=== PATIENT | female | born 1980 | race American Indian/Alaskan Native ===

== ENCOUNTER 2019-01-30 17:48 | Emergency (ER) | payer MEDICAID ==
[2019-01-30 18:23] VITALS: BP 156/91
--- NOTE | 2019-01-30 18:55 | EDM.PDOC ---
ED HPI GENERAL MEDICAL PROBLEM - General Chief Complaint: Abdominal Pain Stated Complaint: ABD PAIN Time Seen by Provider: 01/30/19 18:30 Source of Information: Reports: Patient History Limitations: Reports: No Limitations - History of Present Illness INITIAL COMMENTS - FREE TEXT/NARRATIVE: 38-year-old female with upper abdominal pain and spasms intermittently all day, one episode of emesis. Currently she has no discomfort. No diarrhea, no fevers or chills. She has a history of a cholecystectomy. Onset: Today Duration: Hour(s): (Started at 11 this morning, 8 hours ago) Location: Reports: Abdomen (Upper abdomen) Improves with: Reports: None Worsens with: Reports: None Upper Abdominal Pain Score (Numeric/FACES): 8 - Related Data Allergies Allergy/AdvReac Type Severity Reaction Status Date / Time No Known Allergies Allergy Verified 01/30/19 18:25 Home Meds: Home Meds Buprenorphine HCl/Naloxone HCl [Suboxone 12 mg-3 mg Sl Film] 2 each SL DAILY 12/19 [History] medroxyPROGESTERone Acetate [Depo-Subq Provera 104] 1 dose SQ ASDIRECTED [History] Past Medical History HEENT History: Reports: Impaired Vision Gastrointestinal History: Reports: Cholelithiasis 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: Musculoskeletal History: Reports: Back Pain, Chronic Neurological History: Reports: Migraines - Infectious Disease History Infectious Disease History: Reports: Chicken Pox - Past Surgical History GI Surgical History: Reports: Cholecystectomy Social & Family History - Tobacco Use Smoking Status *Q: Current Every Day Smoker Years of Tobacco use: 20 Packs/Tins Daily: 0.5 Used Tobacco, but Quit: No Second Hand Smoke Exposure: Yes - Caffeine Use Caffeine Use: Reports: Coffee, Soda, Tea - Recreational Drug Use Recreational Drug Use: No ED ROS GENERAL - Review of Systems Review Of Systems: See Below Constitutional: Denies: Fever, Chills HEENT: Reports: No Symptoms Respiratory: Denies: Shortness of Breath Cardiovascular: Denies: Chest Pain GI/Abdominal: Reports: Abdominal Pain, Constipation, Nausea, Vomiting. Denies: Diarrhea : Reports: No Symptoms Musculoskeletal: Reports: Other (Chronic back pain) Neurological: Reports: No Symptoms ED EXAM, GI/ABD - Physical Exam Exam: See Below Exam Limited By: No Limitations General Appearance: Alert, No Apparent Distress Eyes: Bilateral: Normal Appearance (No jaundice) Head: Atraumatic Neck: Normal Inspection Respiratory/Chest: No Respiratory Distress, Lungs Clear Cardiovascular: Regular Rate, Rhythm GI/Abdominal Exam: Normal Bowel Sounds, Soft, Tender (She does react with tenderness to palpation across the upper abdomen and periumbilical area, no rebound tenderness but mild guarding is present) Neurological: Alert, Oriented Psychiatric: Normal Affect, Normal Mood Skin Exam: Warm, Dry Course - Vital Signs Last Recorded V/S: Last Vital Signs Temp 96.6 F 01/30/19 18:36 Pulse 67 01/30/19 18:36 Resp 16 01/30/19 18:36 BP 156/91 H 01/30/19 18:36 Pulse Ox 94 L 01/30/19 18:36 - Orders/Labs/Meds Labs: Laboratory Tests 01/30/19 01/30/19 01/30/19 Range/Units 18:57 19:00 19:00 WBC 12.1 H (4.5-11.0) K/uL RBC 5.23 (3.30-5.50) M/uL Hgb 14.4 (12.0-15.0) g/dL Hct 44.9 (36.0-48.0) % MCV 86 (80-98) fL MCH 28 (27-31) pg MCHC 32 (32-36) % Plt Count 407 H (150-400) K/uL Neut % (Auto) 82 H (36-66) % Lymph % (Auto) 13 L (24-44) % [place] % (Auto) 5 (2-6) % Eos % (Auto) 1 L (2-4) % Baso % (Auto) 0 (0-1) % Sodium 138 L (140-148) mmol/L Potassium 3.5 L (3.6-5.2) mmol/L Chloride 104 (100-108) mmol/L Carbon Dioxide 25 (21-32) mmol/L Anion Gap 12.5 (5.0-14.0) mmol/L BUN 8 (7-18) mg/dL Creatinine 0.7 (0.6-1.0) mg/dL Est Cr Clr Drug Dosing 91.91 mL/min Estimated GFR (MDRD) > 60 (>60) Glucose 115 H (74-106) mg/dL Calcium 9.1 (8.5-10.1) mg/dL Total Bilirubin 0.7 (0.2-1.0) mg/dL AST 22 (15-37) U/L ALT 28 (12-78) U/L Alkaline Phosphatase 164 H (46-116) U/L Total Protein 8.4 H (6.4-8.2) g/dL Albumin 3.6 (3.4-5.0) g/dL Globulin 4.8 H (2.3-3.5) g/dL Albumin/Globulin Ratio 0.8 L (1.2-2.2) Lipase 63 L (73-393) U/L Urine Opiates Screen Negative (NEGATIVE) Ur Oxycodone Screen Presumptive positive H (NEGATIVE) Urine Methadone Screen Negative (NEGATIVE) Ur Propoxyphene Screen Negative (NEGATIVE) Ur Barbiturates Screen Negative (NEGATIVE) Ur Tricyclics Screen Negative (NEGATIVE) Ur Phencyclidine Scrn Negative (NEGATIVE) Ur Amphetamine Screen Negative (NEGATIVE) U Methamphetamines Scrn Negative (NEGATIVE) Urine MDMA Screen Negative (NEGATIVE) U Benzodiazepines Scrn Negative (NEGATIVE) U Cocaine Metab Screen Negative (NEGATIVE) U Marijuana (THC) Screen Negative (NEGATIVE) - Re-Assessments/Exams Free Text/Narrative Re-Assessment/Exam: 01/30/19 18:53 A two-view x-ray of the abdomen will be obtained, flat and upright. CBC CMP and lipase also drawn. 01/30/19 19:25 Labs were reassuring as well with the white count is mildly elevated, and an alk phosphatase mildly elevated. UA was negative, urine drug screen positive for oxicodone. She'll be sent home with 5 doses of Zofran to use over the next 24-48 hours. Departure - Departure Time of Disposition: 19:35 Disposition: Home, Self-Care 01 Condition: Good Clinical Impression: Abdominal pain Qualifiers: Abdominal location: upper abdomen, unspecified Qualified Code(s): R10.10 - Upper abdominal pain, unspecified - Discharge Information Instructions: Abdominal Pain, Adult, [id number] Referrals: PCP,None [Primary Care Provider] - Forms: ED Department Discharge Care Plan Goals: Use Zofran and your tongue every 6-8 hours for nausea and vomiting, return if worsening such as fever, increased pain or worsening vomiting despite treatment with medicine.
--- NOTE | 2019-01-30 19:22 | CRLCR ---
INDICATION: Abdominal pain. COMPARISON: None. FINDINGS/IMPRESSION: Bowel gas pattern is within normal limits. No free air identified. Right upper quadrant cholecystectomy clips. A 5 millimeter calcification in the right pelvis projected just inferior to the inferior margin of the right sacroiliac joint, could possibly represent a stone in the distal right ureter; clinical correlation is suggested, and this could be further evaluated with CT if clinically indicated. Tiny calcifications in the low left pelvis likely represent phleboliths. Included bones are unremarkable. Dictated by Matthias Franklin MD @ 01/30/2019 7:18:47 PM Dictated by: Matthias Franklin MD @ 01/30/2019 19:20:46 (Electronically Signed)
== END 2019-01-30 19:38 | disposition home or self-care (01) ==
LOC: JP.ED 17:48
DX: R10.10 Upper abdominal pain, unspecified (principal); F17.210 Nicotine dependence, cigarettes, uncomplicated; Z79.899 Other long term (current) drug therapy
CPT/HCPCS: 36415; 74019; 80053; 80305-QW; 83690; 85025; 99284-25